=== PATIENT | male | born 1960 | race Caucasian/White ===

== ENCOUNTER 2022-07-05 01:59 | Emergency (ER) | payer OTHER ==
[2022-07-05 03:12] LABS: BASOPHIL 0.6 % (0-2); EOSINOPHIL 2.5 % (0-5); HCT 41.1 % (42.0-52.0); HGB 13.8 g/dl (13.2-18.0); MCH 30.3 pg (25.0-31.0); MCHC 33.6 g/dL (32.0-36.0); MCV 90.1 fL (78.0-100.0); MONOCYTE 9.2 % (0-12); NEUTROPHIL 63.2 % (41-80); NRBC 0; PLT 209 K/uL (150-400); RBC 4.56 M/uL (4.70-6.00); RDW 13.2 % (11.5-14.0); WBC 11.1 K/uL (4.0-10.5)
[2022-07-05 03:16] LABS: ALBUMIN 3.9 g/dL (3.4-5.0); BILIRUBIN - TOTAL 0.4 mg/dL (0.2-1.0); BUN/CREAT RATIO (CALC) 24.8 RATIO; CREATININE 1.09 mg/dL (0.67-1.17); GLOBULIN (CALCULATION) 3.6 g/dL; POTASSIUM 4.4 mmol/L (3.5-5.1); TOTAL PROTEIN 7.5 g/dL (6.4-8.2)
[2022-07-05 03:18] LABS: INR 0.92 (0.9-1.2); PROTHROMBIN TIME 12.1 SECONDS (11.9-13.9)
[2022-07-05 04:58] LABS: BILIRUBIN NEGATIVE (NEGATIVE); BLOOD 2+ Ery/uL (NEGATIVE); CLARITY CLEAR (CLEAR); COLOR YELLOW (YELLOW); GLUCOSE (U) 3+ mg/dL (NORMAL); LEUKOCYTES NEGATIVE Leu/uL (NEGATIVE); NITRITE NEGATIVE (NEGATIVE); PROTEIN NEGATIVE (NEGATIVE); UROBILINOGEN 0.2 mg/dL (0.2-1.0); pH 5.5 (5.0-9.0)
[2022-07-05] MEDS ORDERED: PERCOCET 5-3251 EACH PO (05:08)
[2022-07-05] MEDS ORDERED: ONDANSETRON ODT4 MG PO (05:08)
[2022-07-05] MEDS ORDERED: FLOMAX0.4 MG PO (05:08)
[2022-07-05] MEDS ORDERED: NAPROXEN500 MG PO (05:08)
[2022-07-05 05:09] LABS: URINARY WBC RARE
== END 2022-07-05 05:32 | disposition home or self-care (01) ==
LOC: FER 01:59
PROVIDERS: Internal Medicine
DX: N13.2 Hydronephrosis with renal and ureteral calculous obstruction (principal); I25.10 Atherosclerotic heart disease of native coronary artery without angina pectoris; I10 Essential (primary) hypertension; E11.9 Type 2 diabetes mellitus without complications; Z88.0 Allergy status to penicillin; Z95.1 Presence of aortocoronary bypass graft; Z79.84 Long term (current) use of oral hypoglycemic drugs
CPT/HCPCS: 36415; 80053; 81001; 83690; 85025; 85610; 85730; J1170; J1885; J7030